=== PATIENT | female | born 1965 ===

== ENCOUNTER → 2019-11-23 | Outpatient (CLI) | payer BC ==
[2019-11-24 14:53] LABS: Candida species (DNA Probe) Negative (NEGATIVE); G. vaginalis (DNA Probe) Negative (NEGATIVE); T. vaginalis (DNA Probe) Negative (NEGATIVE)
== END | disposition home or self-care (01) ==
LOC: LAB SHORT 18:49 → LAB 18:49
PROVIDERS: Family Medicine
DX: N89.8 Other specified noninflammatory disorders of vagina (principal)
CPT/HCPCS: 87480; 87510; 87660

== ENCOUNTER → 2021-05-12 | Outpatient (CLI) | payer BC ==
[2021-05-14 16:11] LABS: HPV 16 Negative (Negative); HPV 18 Negative (Negative); HPV OTHER HR TYPES Negative (Negative)
== END | disposition home or self-care (01) ==
LOC: LAB SHORT 16:24
PROVIDERS: Family Medicine
DX: Z01.419 Encounter for gynecological examination (general) (routine) without abnormal findings (principal)
CPT/HCPCS: 87624; G0123

== ENCOUNTER 2024-01-23 08:28 | Day surgery (SDC) | payer BC ==
[~2024-01-23] VITALS: Ht 177.8 cm; Wt 70.3 kg
[~2024-01-23 08:28] MED LIST: Lidocaine 1%-Epineph 1:100000 20 ML MDV ONE; NS 500 ML IV ONE
[2024-01-23] MEDS ORDERED: ACYCLOVIR400 MG PO (08:40)
[2024-01-23] MEDS ORDERED: IBUP200 PO (08:40)
[2024-01-23] MEDS ORDERED: Midazolam HCl 1MG / ML 2ML Vial ONE (08:57)
[2024-01-23] MEDS ORDERED: NS 500 ML IV ONE (08:59)
[2024-01-23 09:57] VITALS: BP 109/72
== END 2024-01-23 09:55 | disposition home or self-care (01) ==
LOC: ORSCSDS 08:28
PROVIDERS: Orthopaedic Surgery
PROC: 01N54ZZ Release Median Nerve, Percutaneous Endoscopic Approach (ICD-10-PCS; principal; 2024-01-23 09:45)
PROC: 0LN70ZZ Release Right Hand Tendon, Open Approach (ICD-10-PCS; principal; 2024-01-23 09:45)
DX: G56.01 Carpal tunnel syndrome, right upper limb (principal); M65.341 Trigger finger, right ring finger; Z87.891 Personal history of nicotine dependence
CPT/HCPCS: J2250; J7040

== ENCOUNTER 2024-08-20 06:50 | Day surgery (SDC) | payer BC ==
[~2024-08-20] VITALS: Ht 177.8 cm; Wt 71.1 kg
[~2024-08-20 06:50] MED LIST changes: +ACYCLOVIR400 MG PO; +IBUP200 PO; -Lidocaine 1%-Epineph 1:100000 20 ML MDV ONE
[2024-08-20] MEDS ORDERED: CeFAZolin Sodium 2,000 MG VIAL ONE (06:56)
[2024-08-20] MEDS ORDERED: ESTRADIOL42.5 GM (07:03)
[2024-08-20] MEDS ORDERED: NS 500 ML IV ONE (07:06)
[2024-08-20] MEDS ORDERED: NS 100 ML IV ONE (07:17)
--- NOTE | 2024-08-20 07:23 | NUR ---
[facility]23 [facility] TIMEOUT AND INJECTION BY DR TAPIA OF 9 CC OF MIX OF (9 CC LIDOCAINE 1% WITH EPI 1:100,000 WITH 1 CC OF SODIUM BICARB) PT TOLERATED WELL
[2024-08-20] MEDS ORDERED: Midazolam HCl 1MG / ML 2ML Vial ONE (07:24)
[2024-08-20 08:13] VITALS: BP 126/67
== END 2024-08-20 08:50 | disposition home or self-care (01) ==
LOC: ORSCSDS 06:50
PROVIDERS: Orthopaedic Surgery
PROC: 01N54ZZ Release Median Nerve, Percutaneous Endoscopic Approach (ICD-10-PCS; principal; 2024-08-20 08:00)
PROC: 0LN60ZZ Release Left Lower Arm and Wrist Tendon, Open Approach (ICD-10-PCS; 2024-08-20 08:00)
DX: G56.02 Carpal tunnel syndrome, left upper limb (principal); M65.4 Radial styloid tenosynovitis [de Quervain]; F17.290 Nicotine dependence, other tobacco product, uncomplicated; Z79.899 Other long term (current) drug therapy
CPT/HCPCS: J0690; J2250; J2704; J7040

== ENCOUNTER → 2024-11-20 | Outpatient (CLI) | payer BC ==
[~2024-11-20] MED LIST changes: +ESTRADIOL42.5 GM; -NS 500 ML IV ONE
[2024-11-23 22:27] LABS: C. TRACHOMATIS BY TMA,THINPREP Negative (Negative); N. GONORRHOEAE BY TMA,THINPREP Negative (Negative)
== END ==
LOC: LAB SHORT 14:36 → LAB 14:36
PROVIDERS: Family Medicine
DX: Z11.3 Encounter for screening for infections with a predominantly sexual mode of transmission (principal); Z01.419 Encounter for gynecological examination (general) (routine) without abnormal findings
CPT/HCPCS: 87491; 87591; 87624; G0145